=== PATIENT | male | born 1980 | race Caucasian/White ===

== ENCOUNTER 2018-12-22 13:59 | Emergency (ER) | payer OTHER ==
[~2018-12-22] VITALS: Ht 182.9 cm; Wt 84.8 kg
--- NOTE | 2018-12-22 14:04 | NUR ---
PT BIB [facility] TO ER BED 5
[2018-12-22 14:05] VITALS: BP 149/92
--- NOTE | 2018-12-22 14:10 | NUR ---
AAO X4 38 YR OLD MALE BIB [facility] FROM HOME WITH C/O DIZZY TODAY AND GI BLEED X 2 WKS. LAST BM TODAY WITH DARK RED STOOL. DENIES ABDOMINAL PAIN OR NVD HX; DENIES RX; DENIES
[2018-12-22] MEDS ORDERED: NACL 0.9% 2,000 ML IV SCH (14:19)
[2018-12-22] MEDS ORDERED: NACL 0.9% 1,000 ML IV ONE (14:19)
[2018-12-22] MEDS ORDERED: NACL 0.9% 1,000 ML IV SCH (14:19)
--- NOTE | 2018-12-22 14:46 | NUR ---
PT TAKEN OFF THE UNIT VIA WHEEL CHAIR FOR CT SCAN BY [facility]
[2018-12-22 14:51] LABS: BASOPHILS % (AUTO) 0.4 % (0.0-2.0); EOSINOPHILS % (AUTO) 0.5 % (0.0-4.0); HEMATOCRIT 45.8 % (36-52); HEMOGLOBIN 15.6 g/dL (12.0-18.0); LYMPHOCYTES # (AUTO) 1.1 K/uL (2.0-11.5); MEAN CORPUSCULAR HEMOGLOBIN 32 pg (27-31); MEAN CORPUSCULAR HGB CONC 34 g/dL (33-37); MEAN CORPUSCULAR VOLUME 92.7 fL (80-94); MONOCYTES # (AUTO) 0.5 K/uL (0.8-1.0); MONOCYTES % (AUTO) 5.8 % (1.7-9.3); NEUTROPHILS # (AUTO) 6.3 K/uL (1.8-7.7); NEUTROPHILS % (AUTO) 79.3 % (42.2-75.2); PLATELET COUNT (AUTO) 236 K/uL (140-450); RED BLOOD CELL COUNT(AUTO) 4.94 MIL/uL (4.20-6.10); WHITE BLOOD COUNT (AUTO) 7.9 K/uL (4.8-10.8)
[2018-12-22 15:06] LABS: APPEARANCE,URINE CLEAR (CLEAR); BILIRUBIN,URINE NEGATIVE (NEGATIVE); BLOOD, URINE NEGATIVE (NEGATIVE); COLOR,URINE YELLOW (YELLOW); LEUKOCYTE ESTERASE ,URINE NEGATIVE (NEGATIVE); NITRITE, URINE NEGATIVE (NEGATIVE); UGLUCOSE NEGATIVE (NEGATIVE)
[2018-12-22 15:11] LABS: ANION GAP 14.3 (8-16); CARBON DIOXIDE 27.2 mmol/L (21-32); CHLORIDE 101 mmol/L (98-107); CREATININE 0.8 mg/dL (0.7-1.3); GFR ARICAN-AMERICAN 140 mL/min (>90); GLUCOSE 91 mg/dL (74-106); POTASSIUM 3.5 mmol/L (3.5-5.1); SODIUM SERUM 139 mmol/L (136-145); UREA NITROGEN, BLOOD 10 mg/dL (7-18)
[2018-12-22] MEDS ORDERED: PANTOPRAZOLE 40 MG INJ VIAL IVP ONE (15:15)
[2018-12-22] MEDS ORDERED: FAMOTIDINE 20 MG/2 ML VIAL IVP ONE (15:15)
[2018-12-22] MEDS ORDERED: ONDANSETRON 4 MG/2 ML VIAL IVP ONE (15:15)
[2018-12-22 15:20] LABS: BARBITURATE, URINE NEG. ng/ml (NEG <=200); BENZODIAZEPINE, URINE NEG. ng/mL (NEG <=200); CANNABINOID, URINE NEG. ng/mL (NEG <=50); COCAINE, URINE NEG. ng/mL (NEG <=300); OPIATE, URINE NEG. ng/mL (NEG <=2000); PHENCYCLIDINE SCREEN,URINE NEG. ng/mL (NEG <=25)
[2018-12-22 15:22] LABS: ALBUMIN 4.3 g/dL (3.4-5.0); AMYLASE 44 U/L (25-115); ASPARTATE AMINOTRANSFERASE 21 U/L (15-37); LIPASE 352 U/L (73-393); TOTAL BILIRUBIN 0.6 mg/dL (0.0-1.0)
[2018-12-22 15:32] LABS: ACETONE, SERUM NEGATIVE (NEGATIVE)
[2018-12-22 15:38] LABS: URIC ACID 4.5 mg/dL (2.6-7.2)
[2018-12-22 15:54] LABS: PROTHROMBIN TIME 9.2 secs (10.8-13.4)
[2018-12-22 16:30] VITALS: BP 119/79
== END 2018-12-22 16:30 | disposition home or self-care (01) ==
LOC: MED 13:59
DX: K62.5 Hemorrhage of anus and rectum (principal); R42 Dizziness and giddiness; E86.0 Dehydration
CPT/HCPCS: 36415; 36600; 74176; 80053; 80305; 81003; 82009; 82150; 82803; 83605; 83690; 83735; 84484; 84550; 85025; 85610; 86886; 86900; 86901; 96361; 96374; 96375; 99284; C9113; G0482; J2405; J3490; J7030; 93005